=== PATIENT | male | born 1995 | race Caucasian/White ===

== ENCOUNTER 2021-08-07 08:00 | Outpatient (CLI) | payer OTHER ==
--- NOTE | 2021-08-07 11:07 | MRI Report ---
PROCEDURE: Ankle RT W/O INDICATIONS: PAIN IN ANKLE TECHNIQUE: Noncontrast sagittal T1 spin echo and T2 fast spin echo with fat saturation, axial proton density fas t spin echo and T2 fast spin echo with fat saturation, coronal T1 spin echo and T2 fast spin echo wit h fat saturation through the ankle/hindfoot. COMPARISON: None. Findings: Bones: No evidence of fracture, infiltration, or ischemia. Minimal subchondral edema in the posterio r cuboid. Muscles: No evidence of muscular atrophy or edema. Anterior tibiofibular ligament: Intact. Posterior tibiofibular ligament: Intact. Calcaneofibular ligament: Intact. Talar dome: No significant abnormality. Anterior talofibular ligament: Intact. Posterior talofibular ligament: Intact. Deltoid ligament: Intact. Peroneal tendons: No evidence of tear or tenosynovitis. Tibialis posterior: No evidence of tear or tenosynovitis. Flexor digitorum: No evidence of tear or tenosynovitis. Flexor hallucis longus: No evidence of tear or tenosynovitis. Sinus Tarsi: No mass or fibrosis. Achilles tendon: Intact. Joint effusion: Small tibiotalar joint effusion. Plantar fascia: No evidence of tear or inflammation. IMPRESSION: 1. Small tibiotalar joint effusion. 2. Minimal osteochondral injury of the posterior cuboid. Reviewed by: Sami Brewer MD on 08/07/2021 11:01 AM [facility] Approved by: Sami Brewer MD on 08/07/2021 11:01 AM [facility] Station ID: [id number]
== END 2021-08-07 08:01 | disposition home or self-care (01) ==
LOC: DI 08:00
PROVIDERS: ATTEND Student in an Organized Health Care Education/Training Program
DX: M25.471 Effusion, right ankle (principal); R93.6 Abnormal findings on diagnostic imaging of limbs

== ENCOUNTER 2021-08-28 08:00 | Outpatient (CLI) | payer OTHER | END 2021-08-28 23:59 | disposition home or self-care (01) | LOC: LAB.N 08:00 | PROVIDERS: ATTEND Emergency Medicine | DX: U07.1 COVID-19 (principal) ==